=== PATIENT | female | born 1930 | race Caucasian/White ===

== ENCOUNTER 2021-04-13 10:46 | Outpatient (CLI) | payer MEDICARE, BC | END 2021-04-13 23:59 | disposition home or self-care (01) | LOC: CARD DIAG 10:46 | PROVIDERS: ATTEND Nurse Practitioner | DX: I08.8 Other rheumatic multiple valve diseases (principal); I25.10 Atherosclerotic heart disease of native coronary artery without angina pectoris; J90 Pleural effusion, not elsewhere classified; I70.0 Atherosclerosis of aorta | CPT/HCPCS: 93306 ==